=== PATIENT | male | born 1955 | race Caucasian/White ===

== ENCOUNTER 2016-07-08 09:45 | Inpatient (IN) | payer OTHER ==
[~2016-07-08] VITALS: Ht 185.4 cm; Wt 69.6 kg
[~2016-07-08 09:45] MED LIST: ADDERALL XR 2020 MG PO; ADDERALL20 MG PO; ADVAIR 250/501 DISK IH; ANAPROX DS550 M1 PO; Adderall XR PO; Augmentin PO; BENZONATATE100 MG PO; CEFTIN500 MG PO; CENTRUM SILVER1 EAC3 PO; CLEOCIN300 MG PO; Cleocin PO; DEXILANT30 MG PO; DIAZEPAM10 MG PO; DIAZEPAM5 MG PO; FLORASTOR250 MG PO; LEVOFLOXACIN750 MG PO; LEXAPRO20 MG PO; LUNESTA3 MG PO; MEDROL DOSEPAK4 MG PO; MUCINEX600 MG PO; NAPROSYN375 MG PO; NAPROXEN500 MG PO; NICOTINE PATCH1 EAC2 TD; OMEPRAZOLE10 M1 PO; PANTOPRAZOLE SO40 MG PO; PERCOCET 5/31 TABLET PO; PRILOSEC OTC20 MG PO; PROAIR HFA8.5 GM IH; ROBITUSSIN DM118 ML PO; ROZEREM8 MG PO; SEROQUEL300 MG PO; SPIRIVA RESPIMAT4 GM IH; SSD25GM TP; TEMAZEPAM15 MG PO; TRILEPTAL300 MG PO; ULTRAM50 MG PO; VALIUM10 MG PO; VENTOLIN HFA18 GM IH; ZITHROMAX Z-PA250 MG PO; ZITHROMAX500 MG PO
[2016-07-08 10:41] LABS: HEMATOCRIT 35.7 % (38.0-50.0); MCHC 35.3 G/DL (30.0-36.0); MCV 87.9 FL (86-99); MEAN PLAT.VOLUME 9.5 uM^3 (9.0-12.4); PLATELET COUNT 328 K/uL (156-360); RBC DIS.WIDTH-CV 14.3 % (11.8-14.6); RBC DIS.WIDTH-SD 45.5 % (39-53); RED BLOOD COUNT 4.06 M/uL (4.00-5.50); WHITE BLOOD COUNT 27.2 K/uL (4.1-10.2)
[2016-07-08 10:50] LABS: CHLORIDE 95 mEq/L (99-109); POTASSIUM 2.9 mEq/L (3.7-5.4); SODIUM 131 mEq/L (136-147)
[2016-07-08 10:52] LABS: GLUCOSE 95 mg/dL (70-99)
[2016-07-08 10:53] LABS: ANION GAP 16 MEQ/L (2-14)
[2016-07-08 10:54] LABS: TOTAL BILIRUBIN 0.8 mg/dL (0.0-1.0)
[2016-07-08 10:56] LABS: ALKALINE PHOSPHATASE 127 IU/L (3-129); GFR ESTIMATE (CALCULATED) > 59 mL/min/
[2016-07-08 10:57] LABS: UREA NITROGEN (BUN) 32 mg/dL (9-23)
[2016-07-08 10:58] LABS: DIRECT BILIRUBIN 0.6 mg/dL (0.0-0.3)
[2016-07-08 10:59] LABS: LIPASE 2 U/L (1.0-51.0)
[2016-07-08] MEDS ORDERED: SEROQUEL300 MG PO (12:02)
[2016-07-08] MEDS ORDERED: PRILOSEC20 MG PO (12:03)
[2016-07-08] MEDS ORDERED: INCRUSE ELLI62.5 MCG IH (12:03)
[2016-07-08] MEDS ORDERED: RESTORIL15 MG PO (12:05)
[2016-07-08] MEDS ORDERED: NICODERM CQ1 EAC2 TD (12:05)
[2016-07-08 12:14] LABS: BASOPHIL COUNT 0.1 K/uL (0-0.1); EOSINOPHIL (%) 0 % (0-5); HEMATOLOGY COMMENT 1 SMEAR COMPATIBLE; IMMATURE GRANULOCYTE (%) 0.8 % (0.0-0.7); IMMATURE GRANULOCYTE COUNT 2.2 K/uL; LYMPHOCYTE COUNT 1.1 K/uL (1.0-2.8); MONOCYTE COUNT 0.6 K/uL (0-0.8); NEUTROPHIL COUNT 25.3 K/uL (1.8-6.4); PLAT.SUFFICIENCY ADEQUATE; USER ID STC
[2016-07-08 15:18] LABS: ADD MIUA? NO; BILIRUBIN NEGATIVE; BLOOD NEGATIVE; COLOR YELLOW ((YELLOW)); GLUCOSE (STRIP) NEGATIVE; KETONES NEGATIVE; LEUKOCYTES NEGATIVE; NITRITE NEGATIVE; PROTEIN (STRIP) 30; SPECIFIC GRAVITY 1.028 (1.000-1.030); UCUL ADDED? NO
[2016-07-08 19:45] VITALS: BP 88/56
[2016-07-08 23:48] VITALS: BP 101/58
[2016-07-09 07:08] LABS: HEMATOCRIT 30.2 % (38.0-50.0); MCH 31.4 PG (29.0-34.0); MCHC 35.4 G/DL (30.0-36.0); MCV 88.6 FL (86-99); MEAN PLAT.VOLUME 9.7 uM^3 (9.0-12.4); PLATELET COUNT 312 K/uL (156-360); RBC DIS.WIDTH-CV 14.6 % (11.8-14.6); RBC DIS.WIDTH-SD 47.2 % (39-53); RED BLOOD COUNT 3.41 M/uL (4.00-5.50)
[2016-07-09 07:13] LABS: WHITE BLOOD COUNT 14.7 K/uL (4.1-10.2)
[2016-07-09 07:17] LABS: ANION GAP 10 MEQ/L (2-14); CHLORIDE 105 MEQ/L (99-109); GFR ESTIMATE (CALCULATED) > 59 mL/min/; GLUCOSE 88 mg/dL (70-99); POTASSIUM 3.1 MEQ/L (3.7-5.4); SAMPLE HEMOLYSIS CHECK 0; SAMPLE ICTERIC CHECK 0; SAMPLE LIPEMIA CHECK 0; SODIUM 136 MEQ/L (136-147); UREA NITROGEN (BUN) 17 mg/dL (9-23)
[2016-07-09 07:18] LABS: ALKALINE PHOSPHATASE 116 IU/L (3-129); ANION GAP 10 MEQ/L (2-14); CHLORIDE 105 MEQ/L (99-109); GFR ESTIMATE (CALCULATED) > 59 mL/min/; GLUCOSE 87 mg/dL (70-99); POTASSIUM 3.2 MEQ/L (3.7-5.4); SAMPLE HEMOLYSIS CHECK 0; SAMPLE ICTERIC CHECK 0; SAMPLE LIPEMIA CHECK 0; SODIUM 136 MEQ/L (136-147); TOTAL BILIRUBIN 0.5 MG/DL (0.0-1.0); UREA NITROGEN (BUN) 17 mg/dL (9-23)
[2016-07-09 08:06] VITALS: BP 87/52
[2016-07-09 08:39] LABS: INTERNAL CONTROL VALID? YES
[2016-07-09 08:56] VITALS: BP 90/52
[2016-07-09 16:10] VITALS: BP 87/56
[2016-07-09 23:26] VITALS: BP 110/59
[2016-07-10 06:11] LABS: HEMATOCRIT 31.2 % (38.0-50.0); MCH 30.9 PG (29.0-34.0); MCHC 34.6 G/DL (30.0-36.0); MCV 89.4 FL (86-99); MEAN PLAT.VOLUME 9.5 uM^3 (9.0-12.4); PLATELET COUNT 403 K/uL (156-360); RBC DIS.WIDTH-SD 48.6 % (39-53); RED BLOOD COUNT 3.49 M/uL (4.00-5.50)
[2016-07-10 06:38] LABS: ALKALINE PHOSPHATASE 106 IU/L (3-129); ANION GAP 8 MEQ/L (2-14); CHLORIDE 110 MEQ/L (99-109); GFR ESTIMATE (CALCULATED) > 59 mL/min/; GLUCOSE 82 mg/dL (70-99); POTASSIUM 3.4 MEQ/L (3.7-5.4); SAMPLE HEMOLYSIS CHECK 0; SAMPLE ICTERIC CHECK 0; SAMPLE LIPEMIA CHECK 0; SODIUM 138 MEQ/L (136-147); UREA NITROGEN (BUN) 11 mg/dL (9-23)
[2016-07-10 06:50] LABS: BASOPHIL COUNT 0.2 K/uL (0-0.1); EOSINOPHIL (%) 0.8 % (0-5); EOSINOPHIL COUNT 0.1 K/uL (0-0.3); IMMATURE GRANULOCYTE (%) 4.4 % (0.0-0.7); IMMATURE GRANULOCYTE COUNT 0.5 K/uL; LYMPHOCYTE COUNT 2.5 K/uL (1.0-2.8); MONOCYTE (%) 6.3 % (3-12); MONOCYTE COUNT 0.8 K/uL (0-0.8); NEUTROPHIL (%) 66.6 % (45-76); TOTAL BILIRUBIN 0.3 MG/DL (0.0-1.0)
[2016-07-10 08:12] LABS: ABS NEUTROPHIL COUNT 7.78; ANISOCYTOSIS 1+; EOSINOPHIL ABS CT 0.12; HYPOCHROMASIA OCC; PLAT.SUFFICIENCY ADEQUATE; USER ID MCB
[2016-07-10 09:05] VITALS: BP 11/64; BP 111/64
[2016-07-10 17:37] VITALS: BP 99/60
[2016-07-10 23:37] VITALS: BP 114/60
[2016-07-11 07:57] VITALS: BP 116/68
[2016-07-11 16:37] VITALS: BP 95/53
[2016-07-11 22:45] VITALS: BP 107/57
[2016-07-12 07:41] LABS: HEMATOCRIT 32.6 % (38.0-50.0); MCH 31.3 PG (29.0-34.0); MCHC 33.7 G/DL (30.0-36.0); MCV 92.9 FL (86-99); RBC DIS.WIDTH-CV 15.6 % (11.8-14.6); RBC DIS.WIDTH-SD 52.9 % (39-53); RED BLOOD COUNT 3.51 M/uL (4.00-5.50); WHITE BLOOD COUNT 10.6 K/uL (4.1-10.2)
[2016-07-12 07:48] LABS: HEMATOCRIT 33.5 % (38.0-50.0); MCH 30.9 PG (29.0-34.0); MCHC 33.4 G/DL (30.0-36.0); MCV 92.5 FL (86-99); RBC DIS.WIDTH-CV 15.5 % (11.8-14.6); RBC DIS.WIDTH-SD 52.9 % (39-53); RED BLOOD COUNT 3.62 M/uL (4.00-5.50); WHITE BLOOD COUNT 10.8 K/uL (4.1-10.2)
[2016-07-12 07:59] LABS: MEAN PLAT.VOLUME 9.4 uM^3 (9.0-12.4)
[2016-07-12 08:02] LABS: INTER. NORMALIZED RATIO 1.1; PLATELET COUNT 585 K/uL (156-360); PROTHROMBIN TIME 11.1 (9.2-11.2); PTT 26.6 (25-32)
[2016-07-12 08:07] LABS: ALKALINE PHOSPHATASE 101 IU/L (3-129); ANION GAP 8 MEQ/L (2-14); CHLORIDE 107 MEQ/L (99-109); DIRECT BILIRUBIN 0.1 mg/dL (0.0-0.3); GFR ESTIMATE (CALCULATED) > 59 mL/min/; GLUCOSE 88 mg/dL (70-99); POTASSIUM 3.8 MEQ/L (3.7-5.4); SAMPLE HEMOLYSIS CHECK 0; SAMPLE ICTERIC CHECK 0; SAMPLE LIPEMIA CHECK 0; SODIUM 141 MEQ/L (136-147); TOTAL BILIRUBIN 0.3 MG/DL (0.0-1.0); UREA NITROGEN (BUN) 10 mg/dL (9-23)
[2016-07-12 08:16] LABS: ABS NEUTROPHIL COUNT 8.25; ANISOCYTOSIS 1+; BASOPHIL COUNT 0.1 K/uL (0-0.1); EOSINOPHIL (%) 0.9 % (0-5); EOSINOPHIL ABS CT 0.21; EOSINOPHIL COUNT 0.1 K/uL (0-0.3); HYPOCHROMASIA 1+; IMMATURE GRANULOCYTE (%) 7.1 % (0.0-0.7); IMMATURE GRANULOCYTE COUNT 0.8 K/uL; LYMPHOCYTE COUNT 2.5 K/uL (1.0-2.8); MEAN PLAT.VOLUME 9.4 uM^3 (9.0-12.4); MONOCYTE (%) 7.9 % (3-12); MONOCYTE COUNT 0.8 K/uL (0-0.8); NEUTROPHIL (%) 59.4 % (45-76); NEUTROPHIL COUNT 6.3 K/uL (1.8-6.4); PLAT.SUFFICIENCY INCREASED; PLATELET COUNT 561 K/uL (156-360); USER ID NJR
[2016-07-12 08:33] VITALS: BP 118/70
[2016-07-12 15:27] VITALS: BP 117/60
[2016-07-12 22:32] VITALS: BP 121/66
[2016-07-13 08:13] VITALS: BP 105/55
[2016-07-13 16:24] VITALS: BP 103/65
[2016-07-13 22:48] VITALS: BP 130/73
[2016-07-14 09:01] VITALS: BP 131/77
[2016-07-14 15:00] VITALS: BP 116/73
[2016-07-14 22:58] VITALS: BP 111/58
[2016-07-15 07:04] LABS: HEMATOCRIT 33.9 % (38.0-50.0); MCHC 32.7 G/DL (30.0-36.0); MCV 94.7 FL (86-99); MEAN PLAT.VOLUME 9.3 uM^3 (9.0-12.4); PLATELET COUNT 717 K/uL (156-360); RBC DIS.WIDTH-CV 15.9 % (11.8-14.6); RBC DIS.WIDTH-SD 55.5 % (39-53); RED BLOOD COUNT 3.58 M/uL (4.00-5.50); WHITE BLOOD COUNT 9.1 K/uL (4.1-10.2)
[2016-07-15 07:31] LABS: ANION GAP 8 MEQ/L (2-14); CHLORIDE 105 MEQ/L (99-109); GFR ESTIMATE (CALCULATED) > 59 mL/min/; POTASSIUM 4.5 MEQ/L (3.7-5.4); SAMPLE HEMOLYSIS CHECK 0; SAMPLE ICTERIC CHECK 0; SAMPLE LIPEMIA CHECK 0; SODIUM 139 MEQ/L (136-147); UREA NITROGEN (BUN) 9 mg/dL (9-23)
[2016-07-15 07:32] LABS: GLUCOSE 118 mg/dL (70-99)
[2016-07-15 07:53] LABS: ABS NEUTROPHIL COUNT 7.63; PLAT.SUFFICIENCY INCREASED; USER ID STC
[2016-07-15 08:38] VITALS: BP 116/78
[2016-07-15 11:37] LABS: DELETE MACHINE DIFF? YES
[2016-07-15 12:22] VITALS: BP 99/57
[2016-07-15 12:23] VITALS: BP 121/64
[2016-07-15 16:10] VITALS: BP 149/85
[2016-07-15 23:09] VITALS: BP 120/72
[2016-07-16 07:36] VITALS: BP 119/77
[2016-07-16 16:34] VITALS: BP 113/69
[2016-07-16 23:03] VITALS: BP 132/74
[2016-07-17 08:25] VITALS: BP 137/76
[2016-07-17] MEDS ORDERED: PREDNISONE20 MG PO (11:45)
[2016-07-17] MEDS ORDERED: PREDNISONE10 MG PO ×2 (11:45→12:15)
[2016-07-17] MEDS ORDERED: DOCUSATE SODIU100 MG PO (11:45)
[2016-07-17] MEDS ORDERED: CEFTIN500 MG PO (11:45)
[2016-07-17] MEDS ORDERED: ENDOCET 5-3251 EACH PO (11:45)
== END 2016-07-17 14:20 | disposition home health service (06) | DRG 853 ==
LOC: EME 09:45 → EDOF 11:26 → 5EAST 11:26 → EDOF 12:00 → 5EAST 19:38
PROVIDERS: Emergency Medicine; Internal Medicine; Internal Medicine Pulmonary Disease
PROC: 0BB68ZX Excision of Right Lower Lobe Bronchus, Via Natural or Artificial Opening Endoscopic, Diagnostic (ICD-10-PCS; principal; 2016-07-12)
PROC: 0BBF8ZX Excision of Right Lower Lung Lobe, Via Natural or Artificial Opening Endoscopic, Diagnostic (ICD-10-PCS; principal; 2016-07-12)
PROC: 07B74ZX Excision of Thorax Lymphatic, Percutaneous Endoscopic Approach, Diagnostic (ICD-10-PCS; principal; 2016-07-12)
DX: A41.9 Sepsis, unspecified organism (principal); R65.20 Severe sepsis without septic shock; J44.0 Chronic obstructive pulmonary disease with (acute) lower respiratory infection; J13 Pneumonia due to Streptococcus pneumoniae; J96.01 Acute respiratory failure with hypoxia; R59.1 Generalized enlarged lymph nodes; I95.9 Hypotension, unspecified; E86.0 Dehydration; I10 Essential (primary) hypertension; F31.9 Bipolar disorder, unspecified; F90.9 Attention-deficit hyperactivity disorder, unspecified type; K21.9 Gastro-esophageal reflux disease without esophagitis; F17.210 Nicotine dependence, cigarettes, uncomplicated; E87.6 Hypokalemia; Z66 Do not resuscitate
CPT/HCPCS: 71010; 71020; 71260; 76001; 80048; 80053; 80076; 81003; 82140; 82248; 83605; 83690; 85025; 85027; 85610; 85730; 87040; 87070; 87102; 87116; 87205; 87206; 87449; 88108; 88173; 88305; 88312; 92526 GN; 92610 GN; 93005; 94010; 94640; 94640 76; 94667; 94668; 94760; 94799; 97530 GP; 99202; 99281; 99285; J0461; J1644; J2175; J2250; J2310; J2543; J2550; J2930; J3010; J7030; J7050; J7512

== ENCOUNTER 2016-09-17 17:03 | Emergency (ER) | payer OTHER ==
[~2016-09-17] VITALS: Ht 154.9 cm; Wt 74.0 kg
[~2016-09-17 17:03] MED LIST changes: +DOCUSATE SODIU100 MG PO; +ENDOCET 5-3251 EACH PO; +INCRUSE ELLI62.5 MCG IH; +NICODERM CQ1 EAC2 TD; +PREDNISONE10 MG PO; +PREDNISONE20 MG PO; +PRILOSEC20 MG PO; +RESTORIL15 MG PO
[2016-09-17 18:11] LABS: HEMATOCRIT 36.4 % (38.0-50.0); MCH 29.8 PG (29.0-34.0); MCHC 32.1 G/DL (30.0-36.0); MCV 92.9 FL (86-99); MEAN PLAT.VOLUME 9.1 uM^3 (9.0-12.4); PLATELET COUNT 266 K/uL (156-360); RBC DIS.WIDTH-SD 48.6 % (39-53); RED BLOOD COUNT 3.92 M/uL (4.00-5.50); WHITE BLOOD COUNT 11.3 K/uL (4.1-10.2)
[2016-09-17 18:20] LABS: CHLORIDE 108 mEq/L (99-109); POTASSIUM 4.2 mEq/L (3.7-5.4); SODIUM 141 mEq/L (136-147)
[2016-09-17 18:22] LABS: GLUCOSE 87 mg/dL (70-99)
[2016-09-17 18:24] LABS: ANION GAP 7 MEQ/L (2-14)
[2016-09-17 18:26] LABS: GFR ESTIMATE (CALCULATED) > 59 mL/min/
[2016-09-17 18:27] LABS: UREA NITROGEN (BUN) 12 mg/dL (9-23)
[2016-09-17] MEDS ORDERED: PHENERGAN DM SYR1 ML PO (19:04)
[2016-09-17] MEDS ORDERED: PROVENTIL HFA6.7 GM IH (19:04)
[2016-09-17] MEDS ORDERED: LEVAQUIN750 MG PO (19:06)
[2016-09-17 19:24] VITALS: BP 102/62
== END 2016-09-17 19:26 | disposition home or self-care (01) ==
LOC: EME 17:03
PROVIDERS: Emergency Medicine
DX: J44.0 Chronic obstructive pulmonary disease with (acute) lower respiratory infection (principal); J18.9 Pneumonia, unspecified organism; J45.909 Unspecified asthma, uncomplicated; F17.200 Nicotine dependence, unspecified, uncomplicated
CPT/HCPCS: 71020; 80048; 85027; 94640; 99281; 99283